=== PATIENT | female | born 1995 | race African-American/Black ===

== ENCOUNTER 2022-06-06 09:47 | Outpatient (CLI) | payer BC, SELFPAY | END 2022-06-06 09:48 | disposition home or self-care (01) | PROVIDERS: PCP Internal Medicine Gastroenterology; Visit Provider Obstetrics & Gynecology | DX: Z20.2 Contact with and (suspected) exposure to infections with a predominantly sexual mode of transmission (principal) | CPT/HCPCS: 87491; 87591; 87661 ==

== ENCOUNTER 2023-07-08 12:25 | Outpatient (CLI) | payer OTHER, SELFPAY ==
[2023-07-08 13:43] LABS: HIV 1/2 Ab P24 Ag Result Negative (Negative)
[2023-07-08 13:49] LABS: Hepatitis B Surface Antigen Negative (Negative)
[2023-07-08 13:55] LABS: HAV RESULT Negative (Negative); Hepatitis B Core IgM Result Negative (Negative)
[2023-07-08 14:07] LABS: Hepatitis C Virus Antibody Negative (Negative)
[2023-07-08 16:01] LABS: Rapid Plasma Reagin Non-Reactive (NonReactive)
== END 2023-07-08 12:26 | disposition home or self-care (01) ==
PROVIDERS: PCP Internal Medicine Gastroenterology; Visit Provider Obstetrics & Gynecology
DX: Z11.3 Encounter for screening for infections with a predominantly sexual mode of transmission (principal); Z20.2 Contact with and (suspected) exposure to infections with a predominantly sexual mode of transmission
CPT/HCPCS: 36415; 80074; 86592; 86703; G0432

== ENCOUNTER 2024-01-02 09:17 | Outpatient (CLI) | payer BC, SELFPAY ==
[2024-01-02 10:56] LABS: Hepatitis B Surface Antigen Negative (Negative)
[2024-01-02 10:58] LABS: HIV 1/2 Ab P24 Ag Result Negative (Negative)
[2024-01-02 11:01] LABS: HAV RESULT Negative (Negative); Hepatitis B Core IgM Result Negative (Negative)
[2024-01-02 11:13] LABS: Hepatitis C Virus Antibody Negative (Negative); Rapid Plasma Reagin Non-Reactive (NonReactive)
[2024-01-02 11:15] LABS: Trichomonas Vag PCR NOT DETECTED (NOT DETECTE)
[2024-01-02 11:40] LABS: Chlamydia trachomatis NOT DETECTED (NOT DETECTE); Neisseria gonorrhoeae PCR NOT DETECTED (NOT DETECTE)
== END 2024-01-02 09:18 | disposition home or self-care (01) ==
PROVIDERS: PCP Internal Medicine Gastroenterology; Visit Provider Obstetrics & Gynecology
DX: Z20.2 Contact with and (suspected) exposure to infections with a predominantly sexual mode of transmission (principal)
CPT/HCPCS: 36415; 80074; 86592; 86695; 86696; 86703; 87491; 87591; 87661; G0432